=== PATIENT | male | born 1980 | race Caucasian/White ===

== ENCOUNTER → 2023-02-16 14:54 | Outpatient (CLI) | payer OTHER, MEDICAID, SELFPAY ==
[2023-02-16 15:37] LABS: Add Manual Diff / Slide Review NO; Basophils Absolute Auto 0 /uL (0-100); Basophils Percent Auto 0.7 % (0-2); Eosinophils Absolute Auto 200 /uL (0-450); Eosinophils Percent Auto 3.5 % (2-4); Hematocrit 43.4 % (41-53); Hemoglobin 15.1 g/dL (13.5-17.5); Lymphocytes Absolute Auto 1500 /uL (1100-4500); Lymphocytes Percent Auto 23.4 % (25-40); Mean Corpuscular HGB Conc 34.8 % (30-36); Mean Corpuscular Hemoglobin 30.6 PG (26-34); Mean Corpuscular Volume 88.2 fL (80-100); Monocytes Absolute Auto 600 /uL (0-900); Monocytes Percent Auto 8.7 % (3-14); Neutrophils Absolute Auto 4000 /uL (1500-7000); Neutrophils Percent Auto 63.7 % (50-75); Platelet Count 149 X10^3/uL (150-400); Red Blood Cell Count 4.92 X10^6/uL (4.5-5.9); White Blood Cell Count 6.3 X10^3/uL (4.5-11.0)
[2023-02-16 15:48] LABS: Hemoglobin A1C% w Est Avg Glu 5.7 % (4.0-6.0)
[2023-02-16 16:38] LABS: Alanine Aminotransferase 141 IU/L (<50); Albumin 4.1 g/dL (3.5-5.0); Albumin Globulin Ratio 1.3 (1.0-2.8); Alkaline Phosphatase 64 U/L (38-126); Aspartate Aminotransferase 85 IU/L (17-59); Bilirubin Total 0.8 mg/dL (0.2-1.3); Blood Urea Nitrogen 16 mg/dL (9-20); Carbon Dioxide 24 mmol/L (22-32); Chloride 103 mmol/L (98-107); Cholesterol 162 mg/dL (140-199); Estimated Glomerular Filt Rate > 60 mL/min (>60); Globulin 3.2 g/dL (1.7-4.1); Glucose 114 mg/dL (70-100); HDL Cholesterol 39 mg/dL (40-60); HEMOLYSIS 19 (0-50); LDL Cholesterol Calculated 93 mg/dL (<100); Potassium 4.1 mmol/L (3.4-5.1); Sodium 134 mmol/L (137-145); Total Protein 7.3 g/dL (6.3-8.2); Triglycerides 150 mg/dL (35-150)
[2023-02-16 16:54] LABS: Vitamin D 25 Hydroxy (D3) 22.2 ng/mL (30.0-100.0)
[2023-02-16 17:10] LABS: Estradiol, Total 39.4 pg/mL
[2023-02-16 17:27] LABS: Vitamin B12 417 pg/mL (239-931)
[2023-02-17 06:36] LABS: Sex Hormone Binding Globulin 31.1 nmol/L (16.5-55.9)
[2023-02-19 23:24] LABS: Insulin Level Total 28.7 uIU/mL (2.6-24.9)
[2023-02-24 09:01] LABS: Testosterone Free 6.44 ng/dL (5.00-21.00); Testosterone Total 306.9 ng/dL (264.0-916.0)
== END ==
PROVIDERS: Family Provider Physician Assistant; Referring Provider Specialist; Visit Provider Specialist
DX: R73.9 Hyperglycemia, unspecified (principal); Z82.49 Family history of ischemic heart disease and other diseases of the circulatory system; R53.83 Other fatigue; E66.9 Obesity, unspecified; K50.90 Crohn's disease, unspecified, without complications
CPT/HCPCS: 36415; 80053; 80061; 82306; 82607; 82670; 83036; 83525; 84270; 84402; 84403; 85025

== ENCOUNTER → 2023-08-23 14:57 | Outpatient (CLI) | payer OTHER, MEDICAID, SELFPAY ==
[2023-08-23 17:06] LABS: Add Manual Diff / Slide Review NO; Basophils Absolute Auto 0 /uL (0-100); Basophils Percent Auto 0.3 % (0-2); Eosinophils Absolute Auto 300 /uL (0-450); Eosinophils Percent Auto 4.1 % (2-4); Hematocrit 43.4 % (41-53); Hemoglobin 15.5 g/dL (13.5-17.5); Lymphocytes Absolute Auto 1900 /uL (1100-4500); Lymphocytes Percent Auto 29.6 % (25-40); Mean Corpuscular HGB Conc 35.6 % (30-36); Mean Corpuscular Hemoglobin 30.5 PG (26-34); Mean Corpuscular Volume 85.7 fL (80-100); Monocytes Absolute Auto 500 /uL (0-900); Monocytes Percent Auto 8.7 % (3-14); Neutrophils Absolute Auto 3600 /uL (1500-7000); Neutrophils Percent Auto 57.3 % (50-75); Platelet Count 155 X10^3/uL (150-400); Red Blood Cell Count 5.07 X10^6/uL (4.5-5.9); Red Cell Distribution Width 13.7 % (11.6-14.8); White Blood Cell Count 6.3 X10^3/uL (4.5-11.0)
[2023-08-23 17:11] LABS: Hemoglobin A1C% w Est Avg Glu 5.8 % (4.0-6.0)
[2023-08-23 17:27] LABS: Alanine Aminotransferase 62 IU/L (<50); Albumin 4.1 g/dL (3.5-5.0); Albumin Globulin Ratio 1.4 (1.0-2.8); Alkaline Phosphatase 64 U/L (38-126); Aspartate Aminotransferase 42 IU/L (17-59); BUN Creatinine Ratio 12.4 (6-22); Bilirubin Total 0.9 mg/dL (0.2-1.3); Blood Urea Nitrogen 12 mg/dL (9-20); Carbon Dioxide 24 mmol/L (22-32); Cholesterol 166 mg/dL (140-199); Estimated Glomerular Filt Rate > 60 mL/min (>60); Glucose 110 mg/dL (70-100); HDL Cholesterol 34 mg/dL (40-60); HEMOLYSIS < 15 (0-50); LDL Cholesterol Calculated 91 mg/dL (<100); Potassium 3.5 mmol/L (3.4-5.1); Sodium 138 mmol/L (137-145); Total Protein 7.1 g/dL (6.3-8.2); Triglycerides 204 mg/dL (35-150)
[2023-08-23 18:33] LABS: Testosterone 1060 ng/dL (132-813)
[2023-08-23 18:51] LABS: Luteinizing Hormone 3.35 mIU/mL
[2023-08-23 19:10] LABS: Chloride 106 mmol/L (98-107)
[2023-08-24 08:53] LABS: Thyroid Peroxidase Antibodies 13 IU/mL (0-34)
== END ==
LOC: LAB 14:58
PROVIDERS: Family Provider Physician Assistant; Referring Provider Specialist; Visit Provider Specialist
DX: R89.1 Abnormal level of hormones in specimens from other organs, systems and tissues (principal); E78.2 Mixed hyperlipidemia; R73.09 Other abnormal glucose
CPT/HCPCS: 36415; 80053; 80061; 82670; 83002; 83036; 84403; 85025; 86376

== ENCOUNTER → 2024-09-26 12:54 | Outpatient (CLI) | payer OTHER, SELFPAY ==
[2024-09-26 13:41] LABS: Add Manual Diff / Slide Review NO; Basophils Absolute Auto 100 /uL (0-100); Basophils Percent Auto 0.9 % (0-2); Eosinophils Absolute Auto 300 /uL (0-450); Eosinophils Percent Auto 4.8 % (2-4); Hematocrit 45.9 % (41-53); Hemoglobin 16.2 g/dL (13.5-17.5); Lymphocytes Absolute Auto 1800 /uL (1100-4500); Lymphocytes Percent Auto 26.6 % (25-40); Mean Corpuscular HGB Conc 35.3 % (30-36); Mean Corpuscular Hemoglobin 30.1 PG (26-34); Mean Corpuscular Volume 85.4 fL (80-100); Monocytes Absolute Auto 500 /uL (0-900); Monocytes Percent Auto 7.3 % (3-14); Neutrophils Absolute Auto 4100 /uL (1500-7000); Neutrophils Percent Auto 60.4 % (50-75); Platelet Count 224 X10^3/uL (150-400); Red Blood Cell Count 5.38 X10^6/uL (4.5-5.9); Red Cell Distribution Width 13.5 % (11.6-14.8); White Blood Cell Count 6.7 X10^3/uL (4.5-11.0)
[2024-09-26 14:03] LABS: Alanine Aminotransferase 57 IU/L (<50); Albumin 4.5 g/dL (3.5-5.0); Albumin Globulin Ratio 1.7 (1.0-2.8); Alkaline Phosphatase 75 U/L (38-126); Aspartate Aminotransferase 47 IU/L (17-59); BUN Creatinine Ratio 13.8 (6-22); Bilirubin Total 0.8 mg/dL (0.2-1.3); Blood Urea Nitrogen 16 mg/dL (9-20); Calcium 9.4 mg/dL (8.4-10.2); Carbon Dioxide 23 mmol/L (22-32); Chloride 104 mmol/L (98-107); Estimated Glomerular Filt Rate > 60 mL/min (>60); Globulin 2.6 g/dL (1.7-4.1); Glucose 108 mg/dL (70-100); HEMOLYSIS < 15 (0-50); Potassium 4.1 mmol/L (3.4-5.1); Sodium 139 mmol/L (137-145); Total Protein 7.1 g/dL (6.3-8.2)
[2024-09-26 14:22] LABS: Free T3, Triiodothyronine Free 4.41 pg/mL (2.77-5.27)
[2024-09-26 14:36] LABS: Thyroid Stimulating Hormone 1.81 uIU/mL (0.47-4.68)
[2024-09-26 14:39] LABS: Estradiol, Total 23.1 pg/mL
[2024-09-26 14:55] LABS: Hemoglobin A1C% w Est Avg Glu 5.2 % (4.0-6.0)
[2024-09-28 06:36] LABS: Sex Hormone Binding Globulin 30.3 nmol/L (16.5-55.9)
[2024-09-28 12:09] LABS: Testosterone, Free 21.1 pg/mL (6.8-21.5)
[2024-09-29 06:41] LABS: Insulin Level Total 24.5 uIU/mL (2.6-24.9)
[2024-09-29 07:12] LABS: PSA Free % 25.7 % (.); PSA, Total 1.4 ng/mL (0.0-4.0)
[2024-10-02 10:54] LABS: Cholesterol,Total 150
[2024-10-02 10:55] LABS: HDL Cholesterol 30
[2024-10-02 10:59] LABS: Triglycerides 111
[2024-10-02 11:00] LABS: LDL Cholesterol Cal 99; VLDL Cholesterol Cal 21
== END ==
PROVIDERS: Family Provider Physician Assistant; Referring Provider Specialist; Visit Provider Specialist
DX: E66.9 Obesity, unspecified (principal); Z51.81 Encounter for therapeutic drug level monitoring; R73.09 Other abnormal glucose; E78.2 Mixed hyperlipidemia
CPT/HCPCS: 36415; 80053; 80061; 82670; 83036; 83525; 84153; 84154; 84270; 84402; 84443; 84481; 85025